=== PATIENT | female | born 1960 | race Caucasian/White ===

== ENCOUNTER 2021-09-16 23:46 | Emergency (ER) | payer MEDICAID ==
[~2021-09-16] VITALS: Ht 172.7 cm; Wt 111.4 kg
[~2021-09-16 23:46] MED LIST: ASPI-611 PO; BISA10SU60 RC; CARV3.12 PO; CLON-527 PO; CYCL-1 PO; CYCL-394 PO; DES150T PO; DOCU-273 PO; FENO160T PF; FLUO-86 PO; GABA-532 PO; GLUC-133 PO; HYDR25TA4 PO; LOVA20TA2 PO; NICO-687 TP; NITR0.4T SL; ONDA8TAB9 PO; OXYB5TAB16 PO; PANT-47 PO; VENL150C2 PO
[2021-09-16] MEDS ORDERED: morphine 4 MG/ML inj SYRINge IV ONE (23:50)
[2021-09-16] MEDS ORDERED: ondansetron 4mg rapidly disintigrating tab PO ONE (23:50)
[2021-09-17 00:18] LABS: HEMOGLOBIN 14.1 g/dl (12.0-16.0)
[2021-09-17 00:20] LABS: BASOPHILS % (AUTO) 0.8 % (0-1); EOSINOPHILS # (AUTO) 0.1 X10'3 (0-0.9); EOSINOPHILS % (AUTO) 0.9 % (0-6); HEMATOCRIT 40.8 % (35.0-45.0); LYMPHOCYTES # (AUTO) 1.7 X10'3 (1.1-4.8); LYMPHOCYTES % (AUTO) 27.1 % (21-51); MEAN CORPUSCULAR HEMOGLOBIN 31.1 PG (27.0-31.0); MEAN CORPUSCULAR HGB CONC 34.6 g/dL (33.0-36.5); MEAN CORPUSCULAR VOLUME 89.9 FL (78-98); MEAN PLATELET VOLUME 8.7 FL (7.4-10.4); MONOCYTES # (AUTO) 0.5 X10'3 (0-0.9); MONOCYTES % (AUTO) 8.1 % (2-12); NEUTROPHILS # (AUTO) 3.9 X10'3 (1.8-7.7); NEUTROPHILS % (AUTO) 63.1 % (42-75); PLATELET COUNT 246 X10'3 (140-440); RED BLOOD COUNT 4.54 X10'6 (4.20-5.60); RED CELL DISTRIBUTION WIDTH 13.8 % (11.5-14.5); WHITE BLOOD COUNT 6.3 X10'3 (4.5-11.0)
[2021-09-17 00:26] LABS: ALBUMIN 3.6 G/DL (3.4-5.0); ANION GAP 11 (8-16); BILIRUBIN,TOTAL 0.3 MG/DL (0.1-1.0); BLOOD UREA NITROGEN 13 MG/DL (7-18); BUN/CREATININE RATIO 17.8 (6.6-38.0); CALCIUM 9.2 MG/DL (8.5-10.1); CHLORIDE 103 MMOL/L (99-107); CREATININE 0.73 MG/DL (0.40-0.90); GLUCOSE 130 MG/DL (70-104); POTASSIUM 3.8 MMOL/L (3.5-5.1); SODIUM 140 MMOL/L (135-145); TOTAL CARBON DIOXIDE 25.7 MMOL/L (24-32); TOTAL PROTEIN 7.3 G/DL (6.4-8.2); eGFR 81 ML/MIN
[2021-09-17 00:27] LABS: ALANINE AMINOTRANSFERASE 28 U/L (12-78); ALKALINE PHOSPHATASE 56 IU/L (46-116); ASPARTATE AMINO TRANSFERASE 13 U/L (10-37)
[2021-09-17 00:30] LABS: LIPASE < 50 U/L (73-393)
[2021-09-17] MEDS ORDERED: normal saline 1000ml 1,000 ML IV ONE (00:40)
[2021-09-17] MEDS ORDERED: orphenadrine citrate 60mg/2ml inj. IM ONE (00:40)
[2021-09-17 00:54] LABS: TOTAL CELLS COUNTED 100
[2021-09-17 00:56] LABS: PLATELET ESTIMATE NORMAL
[2021-09-17 01:26] LABS: CLARITY,URINE CLEAR (Clear); COLOR,URINE YELLOW (Yellow); GLUCOSE, URINE NEGATIVE (Neg); KETONES,URINE NEGATIVE (Neg); LEUKOCYTE ESTERASE ,URINE NEGATIVE (Neg); NITRITES, URINE NEGATIVE (Neg); OCCULT BLOOD,URINE TRACE-LYSED (Neg); PROTEIN,URINE NEGATIVE (Neg); UROBILINOGEN,URINE 0.2 E.U/dL (0.2-1.0)
[2021-09-17 01:48] LABS: UA COLLECTION TYPE URINAL
[2021-09-17 01:58] LABS: BACTERIA,URINE NONE SEEN /HPF (Neg); MUCUS STRANDS NONE SEEN /LPF (Neg); RBC,URINE 0-2 /HPF (0-2); SQUAMOUS EPITHELIAL CELL,UR FEW /LPF (FEW); WBC,URINE 0-4 /HPF (0-4)
[2021-09-17] MEDS ORDERED: morphine 4 MG/ML inj SYRINge IV ONE (02:00)
[2021-09-17] MEDS ORDERED: ketorolac trometh. 30mg/ml inj. IV ONE (02:00)
[2021-09-17] MEDS ORDERED: HYDR-3965 PO (02:02)
[2021-09-17 04:05] VITALS: BP 146/84
== END 2021-09-17 04:11 | disposition home or self-care (01) ==
LOC: ER 23:46
DX: R10.30 Lower abdominal pain, unspecified (principal); M54.9 Dorsalgia, unspecified; K59.00 Constipation, unspecified; R11.0 Nausea; E78.00 Pure hypercholesterolemia, unspecified; K21.9 Gastro-esophageal reflux disease without esophagitis; F41.9 Anxiety disorder, unspecified; F32.9 Major depressive disorder, single episode, unspecified; I10 Essential (primary) hypertension; Z88.6 Allergy status to analgesic agent; Z79.899 Other long term (current) drug therapy
CPT/HCPCS: 36415; 74176; 80053; 81001; 83690; 84484; 85007; 85025; 96361; 96372; 96374; 96375; 99285; J1885; J2270; J2360; J7030

== ENCOUNTER 2024-01-21 17:09 | Emergency (ER) | payer MEDICAID, OTHER ==
[~2024-01-21] VITALS: Ht 172.7 cm; Wt 140.0 kg
[~2024-01-21 17:09] MED LIST changes: -OXYB5TAB16 PO; +OXYB5TAB21 PO; -VENL150C2 PO; +VENL150C5 PO
[2024-01-21 17:21] VITALS: BP 124/62; PULSE 56; TEMP 97.6; O2SAT 94
[2024-01-21] MEDS ORDERED: ketorolac trometh inj. 60 MG/2 ML VIAL IM ONE (18:35)
[2024-01-21 18:53] VITALS: RESP 17
[2024-01-21] MEDS: ketorolac trometh. 30mg/ml inj. IM ONE (18:53)
== END 2024-01-21 19:06 | disposition home or self-care (01) ==
LOC: ER 17:09
DX: S93.402A Sprain of unspecified ligament of left ankle, initial encounter (principal); E78.00 Pure hypercholesterolemia, unspecified; I10 Essential (primary) hypertension; K21.9 Gastro-esophageal reflux disease without esophagitis; Z88.6 Allergy status to analgesic agent; Z88.8 Allergy status to other drugs, medicaments and biological substances; Z79.82 Long term (current) use of aspirin; Z79.899 Other long term (current) drug therapy; Z90.49 Acquired absence of other specified parts of digestive tract; Z98.890 Other specified postprocedural states; Z90.710 Acquired absence of both cervix and uterus; X50.1XXA Overexertion from prolonged static or awkward postures, initial encounter; Y93.89 Activity, other specified; Y92.89 Other specified places as the place of occurrence of the external cause; Y99.8 Other external cause status
CPT/HCPCS: 73610; 73630; 96372; 99284; J1885; A6449

== ENCOUNTER 2025-04-08 19:53 | Emergency (ER) | payer MEDICARE ==
[~2025-04-08] VITALS: Ht 172.7 cm; Wt 120.0 kg
[2025-04-08 20:06] VITALS: BP 115/45; PULSE 61; RESP 20; O2SAT 93
--- NOTE | 2025-04-08 20:41 | RADIOLOGY REPORT ---
CLINICAL INDICATION: ANKLE PAIN TECHNIQUE: 3 radiographic views of the right ankle were obtained. Comparison: DI ANKLE, COMPLETE(3VW MIN) on DOS: 01/21/24 FINDINGS/IMPRESSION: There is no evidence of acute fracture or dislocation. Posterior and plantar calcaneal bony spurs. The alignment is anatomical. There is no radiopaque foreign body. Soft tissue edema of the lower leg and ankle.
--- NOTE | 2025-04-08 20:44 | RADIOLOGY REPORT ---
CLINICAL INDICATION: FOOT PAIN TECHNIQUE: 3 radiographic views of the right foot were obtained. Comparison: DI FOOT, COMPLETE (3VW MIN) on DOS: 01/21/24 FINDINGS/IMPRESSION: There is bony irregularity over the distal medial malleolus which may represent sequela of prior inju ry. Correlation with point tenderness is recommended to exclude an acute injury. Otherwise, no evide nce of acute fracture or dislocation. The visualized joint space is well maintained. Small posterior and plantar calcaneal bony spur. The alignment is anatomical. There is no radiopaque foreign body. Moderate to significant soft tissue edema of the lower leg and foot.
--- NOTE | 2025-04-08 20:51 | Physician Documentation ---
History of Present Illness ~ Chief Complaint: Foot pain Stated Complaint: R FOOT PAIN Time Seen by MD: 20:44 Primary Medical Doctor: Dr. Iglesias, [facility]; [place] (independent beauty consultant) HPI Patient presents to the emergency room for evaluation of right foot pain. She was walking today when she suddenly felt a pop of the bottom of her feet and with resulting pain. No fall or trauma. Tetanus witin 5 years: No Medication Reconciliation Allergies: Coded Allergies: misoprostol (Verified Allergy, Severe, dee, 04/08/25) Scheduled Aspirin (Aspir 81), 1 TABLET PO DAILY, (Reported) Bisacodyl (Dulcolax), 1 SUPP RC DAILY Carvedilol (Coreg), 1 TABLET PO BID, (Reported) Fenofibrate (Fenofibrate), 1 TAB PF DAILY, (Reported) Fluoxetine Hcl (Fluoxetine Hcl), 40 MG PO DAILY, (Reported) Gabapentin (Gabapentin), 2 CAP PO TID, (Reported) Gluc 2KCL/Chondr/Fadumo Hy/Hy Ac (Glucosamine & Chondroitin Cap), 1 EACH PO DAILY, (Reported) Hydrochlorothiazide (Hydrochlorothiazide), 1 TAB PO QAM, (Reported) Lovastatin* (Mevacor*), 1 TAB PO DAILY, (Reported) Nicotine 21 MG Patch* (Habitrol 21 MG Patch*), 21 MG TP DAILY, (Reported) Ondansetron (Zofran Odt), 1 TABLET PO Q8H Oxybutynin Chloride (Oxybutynin Chloride), 1 TAB PO TID, (Reported) Pantoprazole Sodium (PROTONIX tablet), 40 MG PO BID Trazodone Hcl* (Desyrel*), 300 MG PO HS, (Reported) Venlafaxine HCl (Effexor Xr), 1 CAP PO QAM, (Reported) Scheduled PRN Clonazepam* (Klonopin*), 1 MG PO BID PRN for for anxiety/agitation, (Reported) Cyclobenzaprine HCl (Cyclobenzaprine HCl), 10 MG PO TID PRN for muscle spasms, (Reported) Cyclobenzaprine* (Cyclobenzaprine*), 1 TABLET PO Q8H PRN for muscle spasms Docusate Sodium (Doc-Q-Lace), 100 MG PO TID PRN for constipation, (Reported) Nitroglycerin (Nitrostat), 1 TAB SL PRNCP PRN for Chest pain Q5min PRNx3-call MD, (Reported) Past Medical History Past Medical History: Peripheral Neuropathy, Angina, High Cholesterol, Hypertension, GERD, Fibromyalgia, Anxiety, Depression Past Surgical History: cholecystectomy, , hysterectomy, other Other Past Surgical History: tumor removal Other Past Family History: NONCONTRIBUTORY Alcohol Use: Rarely Drug Use: none Lives with: Spouse Lives In: Home Review of Systems ROS All review of systems negative except as per HPI Physical Exam Vital Signs: Temperature: 97.0, Heart Rate: 61, Respiratory Rate: 20, BP: 115/45, Pulse Oximetry: 93, Weight: 120.000 Oxygen Flow Rate: 0 Physical Exam General: Patient is awake, alert, oriented x4 in no acute distress and well appearing.~ Head: Normocephalic and atraumatic. Eyes: Conjunctival normal. EOMI. PERRL. ENT: Mucous membranes moist. Neck: Supple, trachea is midline. Chest: Clear to auscultation bilaterally without rales, rhonchi, or wheezes. There is no accessory muscle use or retractions. Cardiac: RRR without murmurs, gallops, or rubs. Extremities: Left lower extremity normal, right lower extremity with 1+ dorsalis pedis pulse no erythema or swelling appreciated. No point tenderness to foot or ankle. Progress Results/Orders Results/Orders Orders - SIXTO VANCE MD Ankle, Complete(3vw Min) (04/08/25 20:10) Foot, Complete (3vw Min) (04/08/25 20:10) Completed Orders - SIXTO VANCE MD Ankle, Complete(3vw Min) (04/08/25 20:10) Foot, Complete (3vw Min) (04/08/25 20:10) Vital Signs 04/08/25 20:06 Temp 97.0 Pulse 61 Resp 20 B/P (MAP) 115/45 Pulse Ox 93 O2 Flow Rate 0 Medical Decision Making Findings Patient presents to the emergency room for evaluation of foot pain as per HPI. Differentials include but are not limited to fractures, dislocations, soft tissue injury, plantar fasciitis. Physical exam is reassuring as his x-ray. Rice therapy discussed. Frostbite precautions discussed. Departure Disposition: HOME / SELF CARE / HOMELESS Impression: Primary Impression: Sprain of foot Condition: Stable Discharge Instructions: Sprains Referrals: NO PRIMARY CARE PROVIDER (PCP) Education Educated: Patient Educated regarding: diagnosis, treatment, need for follow up Signature Scribe Signature: No scribe Attestation: The note accurately reflects work and decisions made by me.Sixto Vance MD 04/08/25 20:51 SIXTO VANCE MD Apr 08, 2025 20:51
[2025-04-08 21:13] VITALS: TEMP 97
== END 2025-04-08 21:14 | disposition home or self-care (01) ==
LOC: ER 19:54
DX: S93.691A Other sprain of right foot, initial encounter (principal); M79.7 Fibromyalgia; I10 Essential (primary) hypertension; E78.00 Pure hypercholesterolemia, unspecified; G62.9 Polyneuropathy, unspecified; K21.9 Gastro-esophageal reflux disease without esophagitis; F41.9 Anxiety disorder, unspecified; F32.A Depression, unspecified; Z90.49 Acquired absence of other specified parts of digestive tract; Z90.710 Acquired absence of both cervix and uterus; Z88.8 Allergy status to other drugs, medicaments and biological substances; Z79.82 Long term (current) use of aspirin; Z79.899 Other long term (current) drug therapy; X58.XXXA Exposure to other specified factors, initial encounter; Y93.01 Activity, walking, marching and hiking; Y92.89 Other specified places as the place of occurrence of the external cause; Y99.8 Other external cause status
CPT/HCPCS: 73610; 73630; 99284